=== PATIENT | male | born 1990 | race Caucasian/White ===

== ENCOUNTER 2019-01-05 23:37 | Inpatient (IN) | payer OTHER ==
[~2019-01-05] VITALS: Ht 177.8 cm; Wt 147.3 kg
[2019-01-07 13:13] VITALS: BP 132/70
== END 2019-01-07 15:40 | disposition left against medical advice (07) | DRG 917 ==
LOC: ED 01-06 05:59 → 4NOR 01-06 09:09 → INTOOBSV 01-06 09:09 → OBSVTOIN 01-06 09:09 → 4NOR 01-06 16:58
PROVIDERS: ADMIT Family Medicine; ATTEND Family Medicine
DX: T42.4X1A Poisoning by benzodiazepines, accidental (unintentional), initial encounter (principal); G92 Toxic encephalopathy; Z68.42 Body mass index [BMI] 45.0-49.9, adult; F11.20 Opioid dependence, uncomplicated; D64.9 Anemia, unspecified; D69.6 Thrombocytopenia, unspecified; D72.829 Elevated white blood cell count, unspecified; E66.01 Morbid (severe) obesity due to excess calories; E86.0 Dehydration; F13.10 Sedative, hypnotic or anxiolytic abuse, uncomplicated; Z87.891 Personal history of nicotine dependence; Z53.21 Procedure and treatment not carried out due to patient leaving prior to being seen by health care provider; F41.0 Panic disorder [episodic paroxysmal anxiety]; Y92.89 Other specified places as the place of occurrence of the external cause
CPT/HCPCS: 36415; 80048; 80307; 82140; 82607; 82962; 84443; 85025; 99285; G0378; J1650; J1885; J7030